=== PATIENT | male | born 1945 | race Caucasian/White ===

== ENCOUNTER 2024-06-17 09:02 | Outpatient (OUT) | payer SELFPAY ==
--- NOTE | 2024-06-17 09:21 | XR_ITS ---
The [address] [address] Patient Name: MELISSA TOLLIVER MRN: [id number] date: 1945 Sex: M Assigned Patient Location: [facility] Current Patient Location: Accession/Order Number: [id number] Exam Date: 06/17/2024 09:16 Report Date: 06/19/2024 06:30 At the request of: PASTORA HARRIS Procedure: XR foot RT min 3V PROCEDURE: XR foot RT min 3V HISTORY: Right Foot Pain COMPARISON: None. FINDINGS: BONES:Mild degenerative change of the first metatarsophalangeal joint. No fracture, dislocation, bone lesion. Mild degenerative enthesopathic spurring of the calcaneus. SOFT TISSUES:No visible soft tissue swelling. EFFUSION:None visible. OTHER: Negative. XR/XR foot RT min 3V IMPRESSION: 1. No appreciable acute bone abnormality. 2. Mild degenerative changes. Electronically authenticated by: BOYD CHRISTOPHER Date: 06/19/2024 06:30
== END 2024-06-17 09:03 | disposition home or self-care (01) ==
LOC: RAD 09:02
PROVIDERS: Visit Provider Podiatrist Foot & Ankle Surgery
DX: M79.671 Pain in right foot (principal)
CPT/HCPCS: 73630